=== PATIENT | female | born 1965 | race Caucasian/White ===

== ENCOUNTER 2020-03-01 13:55 | Outpatient (CLI) | payer OTHER, SELFPAY ==
--- NOTE | 2020-03-01 14:01 | MM_ITS ---
WS: [id number] BILATERAL DIGITAL SCREENING MAMMOGRAPHY WITH CAD CLINICAL INFORMATION: SCREENING HISTORY: Screening mammogram. No current complaints. COMPARISON: None. TECHNIQUE: Bilateral CC and MLO views. FINDINGS: Scattered fibroglandular densities bilaterally. Asymmetric dense breast tissue upper outer right [address]. In the absence of comparisons, recommend Recommend spot compression views and ultrasound. Normal left breast. MM/[place] [id number] IMPRESSION: BI-RADS: 0-Incomplete: Need additional imaging evaluation FOLLOW UP: Need Additional Imaging
== END 2020-03-01 13:56 | disposition home or self-care (01) ==
LOC: RADSHAW 14:00
PROVIDERS: PCP Family Medicine; Visit Provider Family Medicine
DX: Z12.31 Encounter for screening mammogram for malignant neoplasm of breast (principal); N64.89 Other specified disorders of breast
CPT/HCPCS: 77067

== ENCOUNTER 2020-05-03 09:43 | Outpatient (CLI) | payer OTHER, SELFPAY ==
--- NOTE | 2020-05-03 09:56 | US_ITS ---
WS: [id number] RIGHT DIGITAL MAMMOGRAPHY WITH CAD CLINICAL INFORMATION: ASYMMETRIC TISSUE COMPARISON: March 01, 2020 TECHNIQUE: 4 views of the right breast were obtained. FINDINGS: Scattered fibroglandular densities of the right breast. Again seen is the asymmetric breast tissue up per outer right breast. This is unchanged in appearance. The prior examination. Ultrasound is pending . ULTRASOUND BREAST RIGHT TECHNIQUE: Ultrasound right breast focused area of concern. CLINICAL INFORMATION: ASYMMETRIC TISSUE COMPARISON: None. FINDINGS: Ultrasound right breast 10:00 5 cm from the nipple. Dense underlying breast tissue. No evidence of cy stic or solid mass. No lesions to target for biopsy. Findings are benign. US/US breast RT limited* [id number] IMPRESSION: BI-RADS: 2-Benign FOLLOW UP: 1 Year Follow-up Recommend return to annual screening mammography.
== END 2020-05-03 09:44 | disposition home or self-care (01) ==
LOC: RADSHAW 09:45
PROVIDERS: PCP Family Medicine; Visit Provider Family Medicine
DX: R92.8 Other abnormal and inconclusive findings on diagnostic imaging of breast (principal); N64.89 Other specified disorders of breast
CPT/HCPCS: 76642; 77065